=== PATIENT | male | born 1995 | race Caucasian/White ===

== ENCOUNTER 2017-12-12 01:51 | Emergency (ER) | payer SELFPAY ==
[~2017-12-12] VITALS: Ht 172.7 cm; Wt 72.6 kg
--- NOTE | 2017-12-12 01:51 | NUR ---
PT BIB [facility], PREBOOK. TAKEN TO CHAIR E
[2017-12-12 01:58] VITALS: BP 132/73
--- NOTE | 2017-12-12 02:32 | NUR ---
X-Ray with patient
[2017-12-12 02:45] VITALS: BP 127/61
--- NOTE | 2017-12-12 02:45 | NUR ---
Patient discharged with v/s stable. Written and verbal after care instructions given and explained. Patient verbalized understanding. Police with in custody. All questions addressed prior to discharge. Advised to follow up with [facility]D.
== END 2017-12-12 02:45 ==
LOC: MED 01:51
DX: Z04.1 Encounter for examination and observation following transport accident (principal); V49.60XA Unspecified car occupant injured in collision with unspecified motor vehicles in traffic accident, initial encounter; Y93.89 Activity, other specified; Y92.411 Interstate highway as the place of occurrence of the external cause; Y99.8 Other external cause status
CPT/HCPCS: 71045; 99283; Q0092